=== PATIENT | female | born 1945 | race Caucasian/White ===

== ENCOUNTER 2020-04-06 16:00 | Outpatient (REF) | payer MEDICARE, SELFPAY ==
[2020-04-07 09:18] LABS: SARS COV2 PCR INHOUSE NEGATIVE (Negative)
== END 2020-04-06 16:01 | disposition home or self-care (01) ==
LOC: HO.LNP 16:00
PROVIDERS: Internal Medicine; Visit Provider Nurse Practitioner Family
DX: Z20.828 Contact with and (suspected) exposure to other viral communicable diseases (principal)
CPT/HCPCS: U0003